=== PATIENT | female | born 1965 | race Caucasian/White ===

== ENCOUNTER 2018-02-26 15:46 | Emergency (ER) | payer BC, OTHER ==
[2018-02-26 16:59] VITALS: BP 138/87
--- NOTE | 2018-02-26 17:06 | UC ---
Skin Complaint HPI - HPI Summary HPI Summary: 53 y/o female presents to the urgent care c/o ring worm in her left hand and RT wrist since 01/25/2018. Pt reports her cat was Dx that day w/ ring worm by the veterinary since cultures returned positive. The next day she develop a small round rash in her left hand. A week later a second round rash developed in her left wrist. She has been using Lotrimin topical cream which was helping for some days. But 2 days ago a new round rash appeared in her RT wrist. Her cats in on medication, but has not resolved completely. Pt states rash itches and has some scaling at times. Pt denies fever, SCHULTE, dizziness, chest pain, SOB, abdominal pain, N/V/D. - History of Current Complaint Chief Complaint: UCGeneralIllness Time Seen by Provider: 02/26/18 16:56 Stated Complaint: RING WORM Hx Obtained From: Patient Hx Last Menstrual Period: n/a Onset/Duration: Gradual Onset, Lasting Weeks - 4 weeks, Still Present, Worse Since - 2 days Skin Exposure Onset/Duration: Weeks Ago - 4 weeks ago Timing: Constant Onset Severity: Mild Current Severity: Mild Pain Intensity: 0 Pain Scale Used: 0-10 Numeric Location: Discrete - left hand, left wrist and RT wrist round rash w/ itchiness Character: Pruritus, Redness Aggravating Factor(s): Touch Alleviating Factor(s): OTC Creams/Salves - Lotrimin topical w/o any improvement Associated Signs & Symptoms: Positive: Rash - left hand, wrist and Rt wrist. Negative: Fever, Chills, Drainage, Tenderness Related History: Other: - Her cat Dx w/ ringworm - Allergy/Home Medications Allergies/Adverse Reactions: Allergies Allergy/AdvReac Type Severity Reaction Status Date / Time morphine Allergy Severe difficulty Verified 02/26/18 17:00 breathing/hives codeine AdvReac Intermediate Vomiting Verified 02/26/18 17:00 PMH/Surg Hx/FS Hx/Imm Hx Previously Healthy: Yes - Pt denies PMHX - Surgical History Surgical History: Yes Surgery Procedure, Year, and Place: Hysteroscopy. uterine ablation. choley. myoectomy - Family History Known Family History: Positive: Hypertension, Diabetes - Social History Occupation: Employed Full-time Lives: With Family Alcohol Use: Occasionally Substance Use Type: None Smoking Status (MU): Former Smoker Review of Systems All Other Systems Reviewed And Are Negative: Yes Constitutional: Positive: Negative Skin: Positive: Rash - round rash in left hand, wrist and RT hand w/ itchiness Eyes: Positive: Negative ENT: Positive: Negative Respiratory: Positive: Negative Cardiovascular: Positive: Negative Gastrointestinal: Positive: Negative Genitourinary: Positive: Negative Motor: Positive: Negative Neurovascular: Positive: Negative Musculoskeletal: Positive: Negative Neurological: Positive: Negative Psychological: Positive: Negative Is Patient Immunocompromised?: No Physical Exam - Summary Physical Exam Summary: Vital Signs Reviewed: Yes General: well appearing, well nourished female in no acute apparent pain distress, sitting comfortably on examining table Eye Exam: Normal Eyes: Positive: Conjunctiva Clear - PERRLA< EOMI, fundi grossly normal ENT: Positive: Normal ENT inspection, Hearing grossly normal, Pharynx normal, TMs normal Neck: Positive: Supple, Nontender, No Lymphadenopathy Respiratory: Positive: Chest non-tender, Lungs clear, Normal breath sounds, No respiratory distress Cardiovascular: Positive: RRR, No Murmur, Pulses Normal, Brisk Capillary Refill Abdomen Description: Positive: Nontender, No Organomegaly, Soft. Negative: CVA Tenderness (R), CVA Tenderness (L) Bowel Sounds: Positive: Present Musculoskeletal: Positive: Strength Intact, ROM Intact, No Edema Neurological: Positive: Alert, Muscle Tone Normal Psychological Exam: Normal Skin: Positive: Dorsal side of the hand and medial aspect of left wrist w/ an erythematous scaling lesion with a central clearance and raised borders about 2cm x 1cm in size. similar lesion in the RT wrist about [id number] in size, non tender to palpation, no discharge observed. Triage Information Reviewed: Yes Vital Signs: Initial Vital Signs Temp 97.6 F 02/26/18 16:55 Pulse 71 02/26/18 16:55 Resp 15 02/26/18 16:55 BP 138/87 02/26/18 16:55 Pulse Ox 100 02/26/18 16:55 Course/Dx - Course Course Of Treatment: 53 y/o female presents to the urgent care c/o ring worm in her left hand and RT wrist since 01/25/2018. Pt reports her cat was Dx that day w / ring worm by the veterinary since cultures returned positive. The next day she develop a small round rash in her left hand. A week later a second round rash developed in her left wrist. She has been using Lotrimin topical cream which was helping for some days. But 2 days ago a new round rash appeared in her RT wrist. Her cats in on medication, but has not resolved completely. Pt states rash itches and has some scaling at times. Pt denies fever, SCHULTE, dizziness , chest pain, SOB, abdominal pain, N/V/D. Hx obtained. Pt w/ possible tinea corporis. Pt Rx Lamisil topical cream as directed below. Pt advised if not improvement of symptoms to f/u w/ her PCP of [employer] [facility] Buck for further evaluation and treament. D/C instructions explained. Pt understood and agreed w/ plan of care. - Differential Diagnoses - Skin Complaint Differential Diagnoses: Cellulitis, Contact Dermatitis, Local Allergic Reaction , MRSA, Tinea, Urticaria, Varicella Zoster - Diagnoses Provider Diagnosis: Tinea corporis Discharge - Sign-Out/Discharge Documenting (check all that apply): Patient Departure - D/C home All imaging exams completed and their final reports reviewed: No Studies - Discharge Plan Condition: Stable Disposition: HOME Prescriptions: Terbinafine [Lamisil Advanced] 1 % EX BID #1 gel Patient Education Materials: Tinea Corporis (ED) Referrals: Yamilet Buck [Medical Doctor] - 1 Week Matilda Sales MD [Primary Care Provider] - 1 Week Additional Instructions: 1-Please apply medication as directed. Avoid too much contact w/ your contact until his tinea rash resolves 2-If symptoms do not improve or worsen please f/u with your PCP or [employer] [facility] Buck in 1 week for further evaluation and treatment. - Billing Disposition and Condition Condition: STABLE Disposition: Home
== END 2018-02-26 17:30 | disposition home or self-care (01) ==
LOC: UCCORT 15:46
DX: B35.4 Tinea corporis (principal); Z88.5 Allergy status to narcotic agent; Z87.891 Personal history of nicotine dependence
CPT/HCPCS: 99212; G0463